=== PATIENT | male | born 1995 | race Caucasian/White ===

== ENCOUNTER → 2019-09-21 | Outpatient (CLI) | payer OTHER ==
[2019-09-21 17:52] LABS: Appearance,Urine Clear (Clear); Bilirubin,Urine Negative (Negative); Blood,Urine Negative (Negative); Color,Urine Yellow; Glucose,Urine (UA) Negative (Negative); Ketones,Urine Negative (Negative); Leukocyte Esterase,Urine Negative (Negative); Nitrite,Urine Negative (Negative); Protein,Urine Negative (Negative); Urobilinogen,Urine <2.0 mg/dL (<2.0)
== END | disposition home or self-care (01) ==
LOC: LABWHC1 16:05
PROVIDERS: ATTEND Orthopaedic Surgery
DX: D16.9 Benign neoplasm of bone and articular cartilage, unspecified (principal)
CPT/HCPCS: 81003; 87086

== ENCOUNTER 2020-05-04 11:08 | Day surgery (SDC) | payer OTHER ==
[2020-05-03 08:31] VITALS: BMI 36.3
--- NOTE | 2020-05-04 08:06 | P.GSHP ---
History of Present Illness H&P Date: 04/27/20 Chief Complaint: Right-sided abdominal pain The patient is a 24-year-old white male with a history of urolithiasis, who now presents with right lower quadrant abdominal and flank pain. He scan shows moderate right hydronephrosis due to a 12 mm UPJ calculus. 6 left renal calculi measuring up to 11 mm in size were seen. - Constitutional Constitutional: Denies chills, Denies fever - Gastrointestinal Gastrointestinal: Reports abdominal pain, Reports nausea, Reports vomiting - Genitourinary (Male) Genitourinary: Reports kidney stones, Denies dysuria, Denies hematuria Past Medical History - Past Family History Mother Family Medical History: No Reported History Medications and Allergies Home Medications Medication Instructions Recorded Confirmed Type Acetaminophen [Tylenol Extra 1,000 mg PO Q8H PRN 05/03/20 05/03/20 History Strength] Allergies Allergy/AdvReac Type Severity Reaction Status Date / Time hydromorphone [From Dilaudid] Allergy Hallucinati Verified 05/03/20 08:24 ons Surgical - Exam - General well developed, well nourished, no distress - Neck no masses, trachea midline - Respiratory normal respiratory effort, clear to auscultation - Cardiovascular Rhythm: regular Abnormal Heart Sounds: no systolic murmur, no diastolic murmur, no rub, no S3 Gallop, no S4 Gallop, no click, no other - Abdomen Abdomen: soft, non tender, no guarding, no rigid, no rebound - Genitourinary normal penis with no external lesions, testicles non-tender - Psychiatric oriented to time, oriented to person, oriented to place, speech is normal, memory intact Results - Imaging CT scan - abdomen: report reviewed Assessment and Plan (1) Calculus of kidney Status: Acute Code(s): N20.0 - CALCULUS OF KIDNEY SNOMED Code(s): 22356354 (2) Hydronephrosis with renal and ureteral calculous obstruction Status: Acute Code(s): N13.2 - HYDRONEPHROSIS WITH RENAL AND URETERAL CALCULOUS OBSTRUCTION SNOMED Code(s): 286241339 Plan: I had a lengthy discussion with the patient and his mother regarding alternative treatment options. Optimal options include extracorporal shockwave lithotripsy (ESWL) versus ureteroscopy with laser lithotripsy. The pros, cons, and risks associated with each were reviewed in detail. The patient has elected to undergo cystoscopy, right ureteroscopy with holmium laser lithotripsy and possible stone basketing, right ureteral stent insertion. He is aware the risks include anesthesia, bleeding, infection, and ureteral injury. He is aware of the possible need for secondary treatment.
[~2020-05-04 11:08] MED LIST: FAMOTIDINE 20 MG/2 ML VIAL IV PRN; LACTATED RINGERS 1,000 ML IV SCH; LIDOCAINE 1% (10MG/ML) FOR IV START INTRADERMA PRN; MORPHINE SULFATE 4 MG/ML SYRINGE IV PRN; ONDANSETRON 4 MG/2 ML VIAL IVP PRN
--- NOTE | 2020-05-04 11:37 | XR ---
EXAMINATION TYPE: XR KUB DATE OF EXAM: 05/04/2020 COMPARISON: NONE HISTORY: Pain TECHNIQUE: One view abdominal series FINDINGS: The osseous structures are intact. The bowel gas pattern is nonspecific. Surgical clips are seen in the soft tissues. There is a 1 cm right renal calculus. A postsurgical changes involving the pelvis a nd vertebral column. Upper abdomen not included on the exam. Assessment for free air nondiagnostic. IMPRESSION: 1. 1 cm right renal calculus. Likely in the region of the renal pelvis.
[2020-05-04] MEDS ORDERED: ONDANSETRON 4 MG/2 ML VIAL ONE (12:00)
[2020-05-04 12:06] LABS: Basophils % (A) 1 %; Eosinophils # (A) 0.1 k/uL (0-0.7); Eosinophils % (A) 1 %; HCT 44.1 % (39.0-53.0); HGB 14.2 gm/dL (13.0-17.5); Hypochromasia Slight; Lymphocytes # (A) 1.3 k/uL (1.0-4.8); Lymphocytes % (A) 19 %; MCH 23.9 pg (25.0-35.0); MCHC 32.1 g/dL (31.0-37.0); MCV 74.3 fL (80.0-100.0); Mean Platelet Volume 7.4; Microcytosis Slight; Monocytes # (A) 0.4 k/uL (0-1.0); Monocytes % (A) 5 %; Neutrophils # (A) 4.9 k/uL (1.3-7.7); Neutrophils % (A) 73 %; Platelet Count 290 k/uL (150-450); RBC 5.93 m/uL (4.30-5.90); RDW 14.7 % (11.5-15.5); WBC 6.7 k/uL (3.8-10.6)
[2020-05-04 12:16] LABS: African American GFR (CKD) >90 (>60 ml/min/1.73 sqM); Anion Gap 10 mmol/L; Blood Urea Nitrogen 11 mg/dL (9-20); Calcium 9.7 mg/dL (8.4-10.2); Carbon Dioxide 26 mmol/L (22-30); Chloride 104 mmol/L (98-107); Glucose 95 mg/dL (74-99); Non-African American GFR(CKD) >90 (>60 ml/min/1.73 sqM); Sodium 140 mmol/L (137-145)
[2020-05-04] MEDS ORDERED: ROCURONIUM BROMIDE 10 MG/ML 5 ML VIAL IV ONE (12:40)
[2020-05-04] MEDS ORDERED: SUCCINYLCHOLINE CHLORIDE VIAL 200 MG/10 ML VIAL IV ONE (12:40)
[2020-05-04] MEDS ORDERED: GLYCOPYRROLATE 0.2 MG/ML 2 ML VIAL ONE (12:40)
[2020-05-04] MEDS ORDERED: NEOSTIGMINE 1 MG/ML 10 ML VIAL ONE (12:40)
[2020-05-04] MEDS ORDERED: KETOROLAC 15 MG/ML 1 ML VIAL ONE (12:40)
[2020-05-04] MEDS ORDERED: fentaNYL (PF) 50 MCG/ML 2 ML AMP ONE (12:40)
[2020-05-04] MEDS ORDERED: LIDOCAINE 1% INJ 10MG/ML (20 ML MDV) ONE (12:40)
[2020-05-04] MEDS ORDERED: PROPOFOL 10 MG/ML 20 ML VIAL IV ONE (12:40)
[2020-05-04] MEDS ORDERED: MIDAZOLAM 2 MG/2 ML VIAL ONE (12:40)
[2020-05-04] MEDS ORDERED: LACTATED RINGERS 1,000 ML IV ONE (14:16)
--- NOTE | 2020-05-04 14:35 | P.OP ---
Date of Procedure: 05/04/20 Preoperative Diagnosis: Right renal calculus Postoperative Diagnosis: Same Procedure(s) Performed: Cystoscopy, right ureteroscopy with Holmium laser lithotripsy, right ureteral stent insertion Anesthesia: GETA Surgeon: Armand Birch Estimated Blood Loss (ml): 0 IV fluids (ml): 900 Pathology: none sent Condition: stable Disposition: PACU Indications for Procedure: The patient is a 24-year-old white male with a history of urolithiasis, who now presents with right lower quadrant abdominal and flank pain. He scan shows moderate right hydronephrosis due to a 12 mm UPJ calculus. 6 left renal calculi measuring up to 11 mm in size were seen. Operative Findings: Right lower pole renal calculus, fragmented completely. Description of Procedure: The patient was taken to the operating room and placed in the dorsolithotomy position, with legs supported in Manjeet stirrups. The external genitalia was prepped and draped sterilely. The 30 lens was used to introduce the 21-Israeli Elizalde cystoscopic sheath through the urethra and into the bladder under direct vision. The prostatic urethra showed no abnormalities. The bladder was examined in its entirety. Both ureteral orifices were normal anatomic location and configuration, and clear urine effluxed from both. No tumors or foreign bodies were seen. A 0.038 inch Glidewire was passed through the cystoscope. The right ureteral orifice was cannulated, and the Glidewire was advanced up to the right renal pelvis. The cystoscope was removed, and an 11/13-Israeli ureteral access catheter was passed over the wire, up to the proximal ureter. The Elizalde Connect2mera flexible ureteroscope was passed through the ureteral access catheter sheath and advanced under direct vision, up to the right renal pelvis. The calculus was seen within a lower pole calyx. The 272 micron Holmium laser probe was passed through the ureteroscope, and lithotripsy was performed utilizing a dusting technique. However, some fragments broke away, and these were fragmented, leaving no residual calculus fragments larger than the laser fiber tip. The ureteroscope was removed. The Glidewire was passed through the ureteral access catheter sheath, which was then removed. The Glidewire was backloaded into the cystoscope, which was advanced into the bladder. A 26 cm, 4.8-Israeli double-J ureteral stent was placed over the wire. Proper stent positioning was verified fluoroscopically and endoscopically. The bladder was emptied and the cystoscope removed. The patient tolerated the procedure well and was taken to the recovery room in stable condition. BYRON HIGGINBOTHAM Report: Procedure Acuity: Elective Stone Size and Location: 12 mm, right lower pole Ureteral Dilation: No Ureteral Access Sheath Used: Yes Stone Sent for Analysis: No All Stones/Fragments Were Removed with a Basket: No Complications: No Preoperative Antibiotics Given: Yes Stent Placed: Yes If Stent Placed, Was String Left Attached: No If Stent Placed, When is it to be Removed: 1 week Discharge Medications: None
[2020-05-04 14:53] VITALS: TEMP 97.1
--- NOTE | 2020-05-04 16:02 | FL ---
EXAMINATION TYPE: FL guidance operating room DATE OF EXAM: 05/04/2020 HISTORY: Fluoroscopy time 12 seconds of fluoroscopy provided. IMPRESSION: 1. Fluoroscopy time.
[2020-05-04 16:40] VITALS: BP 110/74; PULSE 50; RESP 16
== END 2020-05-04 16:35 | disposition home or self-care (01) ==
LOC: OR 11:08
PROVIDERS: ATTEND Urology
DX: N13.2 Hydronephrosis with renal and ureteral calculous obstruction (principal); K21.9 Gastro-esophageal reflux disease without esophagitis; Z87.442 Personal history of urinary calculi; Z88.5 Allergy status to narcotic agent
CPT/HCPCS: 80048; 85025; 74018; 52356; C2625; J2250; J0330; J2710; J0690; J2405; J2001; J3010; J1885; J2704